=== PATIENT | male | born 1970 | race Caucasian/White ===

== ENCOUNTER 2024-03-04 02:36 | Emergency (ER) | payer SELFPAY ==
[~2024-03-04] VITALS: Ht 175.3 cm; Wt 81.0 kg
[2024-03-04 02:48] VITALS: O2SAT 99
[2024-03-04] MEDS: ALPRAZOLAM 0.25 MG TABLET PO ONE (03:22)
[2024-03-04 03:23] LABS: CHLORIDE 107 mEq/L (98-107); POTASSIUM 3.6 mEq/L (3.5-5.1); SODIUM 140 mEq/L (136-145)
[2024-03-04 03:24] LABS: CARBON DIOXIDE 25 mEq/L (21-32)
[2024-03-04 03:29] LABS: CREATININE 1.1 mg/dL (0.6-1.3); ETHANOL BLOOD < 10 mg/dL (<10); GLUCOSE 109 mg/dL (70-105); UREA NITROGEN BLOOD 15 mg/dL (9-23)
[2024-03-04] MEDS: ALPRAZOLAM 0.25 MG TABLET PO NR (03:30)
[2024-03-04 03:35] LABS: BASOPHILS % 2.4 % (0.0-2.0); EOSINOPHILS % 4.7 % (0.0-5.0); HEMATOCRIT. 42.8 % (42.0-52.0); HEMOGLOBIN. 14.8 g/dL (14.0-18.0); LYMPHOCYTES % 41.9 % (20.0-50.0); MEAN CORPUSCULAR HEMOGLOBIN 29.8 pg (28.0-32.0); MEAN CORPUSCULAR HGB CONC 34.5 g/dL (31.0-37.0); MEAN CORPUSCULAR VOLUME 86.3 fL (80.0-94.0); MEAN PLATELET VOLUME 9.2 fl (7.4-10.4); MONOCYTES % 7.6 % (2.0-8.0); NEUTROPHILS % 43.4 % (40.0-76.0); PLATELET 218 x1000/uL (130-400); RED BLOOD CELL COUNT 4.95 mill/uL (4.7-6.1); RED CELL DISTRIBUTION WIDTH 13.6 % (11.6-14.6)
[2024-03-04 03:43] LABS: TROPONIN I HIGH SENSITIVITY < 4 ng/L (3.0-53)
[2024-03-04] MEDS ORDERED: HYDR-459 MT (04:26)
[2024-03-04 04:45] VITALS: BP 124/85; PULSE 74; RESP 16; TEMP 98.4
== END 2024-03-04 04:35 | disposition home or self-care (01) ==
LOC: ER 02:54
DX: F41.0 Panic disorder [episodic paroxysmal anxiety] (principal); K58.9 Irritable bowel syndrome, unspecified
CPT/HCPCS: 80048; 80320; 83880; 85025; 84484; 36415; 71045; 93005; 99285; Z7610; G0480